=== PATIENT | female | born 1975 | race Caucasian/White ===

== ENCOUNTER 2020-10-19 08:51 | Outpatient (REF) | payer OTHER, SELFPAY ==
--- NOTE | ~2020-10-19 | MM_ITS ---
EXAMINATION: MM SCREENING DIGITAL BREAST TOMOSYNTHESIS, BILATERAL CLINICAL INFORMATION: Screening. Asymptomatic. The lifetime risk of breast cancer based on the Tyrer-Cuzick Model is 21%. COMPARISON: Mammography: 07/13/2017, 02/04/2016, 08/17/2014 TECHNIQUE: Digital breast tomosynthesis is performed in both the craniocaudal and mediolateral oblique views along with computer-aided detection (CAD). Synthesized 2D images are generated from the tomosynthesis. Additional bilateral MLO views are provided. FINDINGS: The breasts are heterogeneously dense, which may obscure small masses (ACR BI-RADS breast composition Category c). There are no significant masses, abnormal calcifications, or other abnormalities. Parenchymal pattern is similar to prior studies. No developing density. The axilla and skin contours are unremarkable. MM/MM tomosynthesis screening BI IMPRESSION: No mammographic evidence of malignancy. ASSESSMENT: BI-RADS 1: Negative RECOMMENDATION: 1. Routine annual mammography screening. 2. The lifetime risk of breast cancer based on the Tyrer-Cuzick Model is 21%. Additional annual adjunct screening with breast MRI may be of benefit in women with a risk score of 20% or greater. This patient's information was entered into a reminder system with a target due date for their next mammogram.
== END 2020-10-19 08:52 | disposition home or self-care (01) ==
LOC: HO.MAMMO 08:51
PROVIDERS: Visit Provider Internal Medicine
DX: Z12.31 Encounter for screening mammogram for malignant neoplasm of breast (principal)
CPT/HCPCS: 77063; 77067

== ENCOUNTER 2022-03-17 12:47 | Outpatient (REF) | payer OTHER, SELFPAY ==
--- NOTE | ~2022-03-17 | MM_ITS ---
EXAMINATION: MM SCREENING DIGITAL BREAST TOMOSYNTHESIS, BILATERAL CLINICAL INFORMATION: Screening. Asymptomatic. The lifetime risk of breast cancer based on the Tyrer-Cuzick Model is 21%. COMPARISON: Mammography: 10/19/2020, 07/13/2017, 02/04/2016 TECHNIQUE: Digital breast tomosynthesis is performed in both the craniocaudal and mediolateral oblique views along with computer-aided detection (CAD). Synthesized 2D images are generated from the tomosynthesis. FINDINGS: The breasts are heterogeneously dense, which may obscure small masses (ACR BI-RADS breast composition Category c). Right breast has smooth oval mass with partly obscured margins central breast mid depth slightly lateral to midline measuring approximately 1.6 x 1.3 cm. This represents change from prior studies. Left breast has 2 small nodules with smooth partly obscured margins anterior mid lower inner quadrant, both under 0.5 cm. This represents change from prior studies. The remainder of the bilateral breasts demonstrate no architectural abnormality or developing density. No abnormal calcifications. There are bilateral dermal calcifications at the posterior medial breasts. The axilla and skin contours are unremarkable. MM/MM tomosynthesis screening BI IMPRESSION: Right: -Smooth oval mass 1.6 x 1.3 cm central mid depth slightly lateral to midline, likely a cyst. Left: -2 small smooth nodules under 0.5 cm anterior mid lower inner quadrant, possibly cysts. ASSESSMENT: BI-RADS 0: Incomplete - Need Additional Imaging Evaluation RECOMMENDATION: 1. Bilateral targeted ultrasound. 2. Radiology department staff will contact the patient for additional imaging. This patient's information was entered into a reminder system with a target due date for their next mammogram.
== END 2022-03-17 12:48 | disposition home or self-care (01) ==
LOC: HO.MAMMO 12:47
PROVIDERS: Visit Provider Internal Medicine
DX: Z12.31 Encounter for screening mammogram for malignant neoplasm of breast (principal)
CPT/HCPCS: 77063; 77067

== ENCOUNTER 2022-03-30 14:51 | Outpatient (REF) | payer OTHER, SELFPAY ==
--- NOTE | ~2022-03-30 | US_ITS ---
EXAMINATION: US DIAGNOSTIC ULTRASOUND BREAST, RIGHT US DIAGNOSTIC ULTRASOUND BREAST, LEFT CLINICAL INFORMATION: Recall from screening for smooth oval mass central mid right breast and 2 small nodules anterior mid lower inner left breast. COMPARISON: Mammography 03/17/2022, 10/19/2020, 07/13/2017. TECHNIQUE: Ultrasound right breast is targeted to the central breast. Ultrasound left breast is targeted to the lower inner quadrants. Both breasts are imaged using grayscale imaging and color Doppler without and with harmonics. FINDINGS: Right: There is an incidental dominant simple cyst central 9:00 position approximately 3 cm from nipple measuring approximately 1.6 x 1.2 cm. There is increased through-transmission of sound. Margins are circumscribed and there is no associated color flow. This corresponds to finding on mammography and is benign. Left: There are 2 tiny anechoic nodules lower inner anterior left breast corresponding to the nodularity on screening mammography and both under 1 cm. There is no strong increased through-transmission of sound, possibly related to the small size. No associated color flow or solid component. These are probably benign and will be reassessed again with mammography in 6 months, ultrasound if warranted. Results are discussed with the patient at time of visit. US/US breast RT limited IMPRESSION: Right: -Incidental dominant benign simple cyst central breast 1.6 cm corresponding to recent mammography. Left: -2 small probable benign anechoic nodules likely cysts. No strong posterior acoustic enhancement possibly due to small size. ASSESSMENT: BI-RADS 3: Probably Benign RECOMMENDATION: Diagnostic left mammography in 6 months. This patient's information was entered into a reminder system with a target due date for their next mammogram.
--- NOTE | ~2022-03-30 | US_ITS ---
EXAMINATION: US DIAGNOSTIC ULTRASOUND BREAST, RIGHT US DIAGNOSTIC ULTRASOUND BREAST, LEFT CLINICAL INFORMATION: Recall from screening for smooth oval mass central mid right breast and 2 small nodules anterior mid lower inner left breast. COMPARISON: Mammography 03/17/2022, 10/19/2020, 07/13/2017. TECHNIQUE: Ultrasound right breast is targeted to the central breast. Ultrasound left breast is targeted to the lower inner quadrants. Both breasts are imaged using grayscale imaging and color Doppler without and with harmonics. FINDINGS: Right: There is an incidental dominant simple cyst central 9:00 position approximately 3 cm from nipple measuring approximately 1.6 x 1.2 cm. There is increased through-transmission of sound. Margins are circumscribed and there is no associated color flow. This corresponds to finding on mammography and is benign. Left: There are 2 tiny anechoic nodules lower inner anterior left breast corresponding to the nodularity on screening mammography and both under 1 cm. There is no strong increased through-transmission of sound, possibly related to the small size. No associated color flow or solid component. These are probably benign and will be reassessed again with mammography in 6 months, ultrasound if warranted. Results are discussed with the patient at time of visit. US/US breast LT limited IMPRESSION: Right: -Incidental dominant benign simple cyst central breast 1.6 cm corresponding to recent mammography. Left: -2 small probable benign anechoic nodules likely cysts. No strong posterior acoustic enhancement possibly due to small size. ASSESSMENT: BI-RADS 3: Probably Benign RECOMMENDATION: Diagnostic left mammography in 6 months. This patient's information was entered into a reminder system with a target due date for their next mammogram.
== END 2022-03-30 14:52 | disposition home or self-care (01) ==
LOC: HO.MAMMO 14:51
PROVIDERS: Visit Provider Internal Medicine
DX: N63.15 Unspecified lump in the right breast, overlapping quadrants (principal); N63.24 Unspecified lump in the left breast, lower inner quadrant
CPT/HCPCS: 76642

== ENCOUNTER 2022-09-29 13:25 | Outpatient (REF) | payer OTHER, SELFPAY ==
--- NOTE | ~2022-09-29 | MM_ITS ---
EXAMINATION: MM DIAGNOSTIC DIGITAL BREAST TOMOSYNTHESIS, LEFT TARGETED LEFT BREAST ULTRASOUND CLINICAL INFORMATION: Six-month follow up left breast nodules. The lifetime risk of breast cancer based on the Tyrer-Cuzick Model is 21%. Additional annual screening with breast MRI may be of benefit in women with a score of 20% or greater. COMPARISON: Mammography: 03/30/2022 and studies dating back to 02/04/2016. TECHNIQUE: Digital breast tomosynthesis is performed in both the craniocaudal and mediolateral oblique views along with computer-aided detection (CAD). Synthesized 2D images are generated from the tomosynthesis. Targeted left breast ultrasound. FINDINGS: The breasts are heterogeneously dense, which may obscure small masses (ACR BI-RADS breast composition Category c). There is stability of the 2 circumscribed densities about the medial aspect of the right breast. No new abnormal dominant mass or suspicious grouping of microcalcifications is identified. Targeted ultrasound evaluation of the left breast medial aspect again demonstrated multiple circumscribed hypoechoic densities with smooth back castellano and increased through sound transmission consistent with small cysts. No suspicious solid mass is identified. No region of abnormal distal sound shadowing is seen. Results are discussed with the patient at time of visit. MM/MM tomosynthesis diagnostic LT IMPRESSION: No mammographic or ultrasound evidence of malignancy. ASSESSMENT: BI-RADS 2: Benign. RECOMMENDATION: Routine annual mammography screening, due in 6 months. This patient's information was entered into a reminder system with a target due date for their next mammogram.
== END 2022-09-29 13:26 | disposition home or self-care (01) ==
LOC: HO.MAMMO 13:25
PROVIDERS: PCP Internal Medicine; Visit Provider Internal Medicine
DX: R92.8 Other abnormal and inconclusive findings on diagnostic imaging of breast (principal)
CPT/HCPCS: 76642; 77061; 77065

== ENCOUNTER 2023-04-02 13:01 | Outpatient (REF) | payer OTHER, SELFPAY | END 2023-04-02 13:02 | disposition home or self-care (01) | LOC: HO.MAMMO 13:01 | PROVIDERS: PCP Internal Medicine; Visit Provider Internal Medicine | DX: Z12.31 Encounter for screening mammogram for malignant neoplasm of breast (principal) | CPT/HCPCS: 77063; 77067 ==

== ENCOUNTER → 2023-04-02 13:15 | Outpatient (BNV) | payer OTHER, SELFPAY | PROVIDERS: PCP Internal Medicine; Visit Provider Radiology Diagnostic Radiology | DX: Z12.31 Encounter for screening mammogram for malignant neoplasm of breast (principal) | CPT/HCPCS: 77063; 77067 ==

== ENCOUNTER 2024-10-16 09:29 | Outpatient (REF) | payer OTHER, SELFPAY ==
--- OUTSIDE RECORDS SUMMARY | 2024-10-16 10:27 | XMS_ITS | Patient Health Record ---
Author Organization [employer] [facility] Address [address] [place] [address] Care Team Providers Care Counter Person Name Role Phone SCHUYLER LOPEZ, SHANDA Primary Care Provider Unavail able AURELIO VERGARA Unavailable [phone] Allergies No Known Allergies Results Component Value Reference Range Notes PDF Report Reviewed date:10/14/2024 02:50:41 PM Interpretation: Performing Lab:[facility] [place], [address], [address], [place], Phone - [phone], Director - [facility] Notes/Report: Clinical Information:[id number] LMP / Prev Treat...[id number] Dates / Results....10/18/2020 No. of containers..01 ThinPrep Vial [id number] Reviewed date:10/14/2024 02:50:35 PM Interpretation: Performing Lab:[facility] [place], [address], [address], [place], Phone - [phone], Director - [facility] Notes/Report: RPR Non Reactive Non Reactive HBsAg Screen-[id number] Reviewed date:10/14/2024 02:50:28 PM Interpretation: Performing Lab:[facility] [place], [address], [address], [place], Phone - [phone], Director - [facility] Notes/Report: HBsAg Screen Negative Negative HIV Ab/p24 Ag with Reflex-[id number] Reviewed date:10/14/2024 02:50:22 PM Interpretation: Performing Lab:[facility] [place], [address], [address], [place], Phone - [phone], Director - [facility] Notes/Report: HIV Ab/p24 Ag Screen Non Reactive Non Reactive HIV-1/HIV-2 antibodies and HIV-1 p24 antigen were NOT detected. There is no laboratory evidence of HIV infection. HIV Negative [id number] IGP, CtNg Culture 30 Plus Reviewed date:10/14/2024 03:53:37 PM Interpretation: Performing Lab:[facility] [place], [address], [address], [place], Phone - [phone], Director - [facility] Notes/Report: Clinical Information:[id number] LMP / Prev Treat...[id number] Dates / Results....10/18/2020 No. of containers..01 ThinPrep Vial DIAGNOSIS: NEGATIVE FOR IN TRAEPITHELIAL LESION OR MALIGNANCY. Specimen adequacy: Satisfact ory for evaluation. Clinician provided ICD10: Z0 1.419 Performed by: Charan monk, Talent Sourcing Specialist ([facility]) . . Note: The Pap smear is a screening test designed to aid in the detection of premalignant and malignant conditions of the uterine cervix. It is not a diagnostic procedure and should not be used as the sole means of detecting cervical cancer. Both false-positive and false-negative reports do occur. . Test Methodology: This liquid based ThinPrep(R) pap test was screened with the use of an image guided system. HPV Aptima Negative Negative This nucleic acid amplification test detects fourteen high-risk HPV types (16,18,31,33,35,39,45,51,52,56, 58,59,66,68) without differentiation. HPV Genotype Reflex Criteria not met, HPV Genotype not performed. Chlamydia, Nuc. Acid Amp Negative Negative Gonococcus, Nuc. Acid Amp Negative Negative HCV [id number] Reviewed date:10/14/2024 02:50:16 PM Interpretation: Performing Lab:[facility], [address], [address], [place], Phone - [phone], Director - [facility] Notes/Report: Hep C Virus Ab Non Reactive Non Reactive HCV antibody alone does not differentiate between previously resolved infection and active infection. Equivocal and Reactive HCV antibody results should be followed up with an HCV RNA test to support the diagnosis of active HCV infection. PDF Report Reviewed date:10/14/2024 02:50:10 PM Interpretation: Performing Lab:[facility] [place], [address], [address], [place], Phone - [phone], Director - [facility] Notes/Report: Reason For Referral No Information Medications Medication SIG (Take, Route, Fr equency, Duration) Notes Start Date End Date Status Norlyda 0.35 MG 1 tablet Orally Once a day for 84 days 10/18/2020 Not-Taking Social History Tobacco Use: Social History Observation Description Date Details (start date - stop date) Former Smoker NA - NA Sexual History Question Answer Notes Had sex in the past 12 months (vaginal, oral, or anal)? No Have you ever had a Sexually transmitted disease ? No AUDIT-C (Standard) Question Answer Notes Did you have a drink contain ing alcohol in the past year? Yes How often did you have a dri nk containing alcohol in the past year? 2 to 3 times a week (3 points) How many drinks did you have on a typical day when you were drinking in the past year? 1 or 2 drinks (0 point) How often did you have six o r more drinks on one occasion in the past year? Never (0 point) Points 3 Interpretation Positive Tobacco Control (Standard) Question Answer Notes Tobacco use: Former smoker How long has it been since you last smoked? 5-10 years Problems Problem Type SNOMED Code ICD Code Onset Dates Problem Status W/U Status Risk Notes Problem Stenosis of cervix (39214255) Stricture and stenosis of cervix uteri (N88.2) Active confirmed Problem Recurrent depression (772914836) Other recurrent depressive disorders (F33.8) Active confirmed Problem Chronic migraine without aura, non-refractory (disorder) (48918866184650 0) Migraine without aura, not intractable, without status migrainosus (G43.009) Active confirmed Problem Family history of malignant neoplasm of breast (253906534) Family history of malignant neoplasm of breast (Z80.3) Active confirmed Vital Signs Temperature 97.7 degrees Fahrenheit 10/10/2024 Blood pressure diastolic 78 mm Hg 10/10/2024 Height 60 in 10/10/2024 Blood pressure systolic 128 mm Hg 10/10/2024 Weight 152 lbs 10/10/2024 BMI 29.68 kg/m2 10/10/2024 Encounters Encounter Location Date Provider Diagnosis [facility] [address] [place] [address] 10/10/2024 AURELIO VERGARA Encounter for gynecological examination (general) (routine) without abnormal findings Z01.419 ; Encounter for screening mammogram for malignant neoplasm of breast Z12.31 and High risk heterosexual behavior Z72.51 Assessments Encounter Date Diagnosis (ICD Code) Assessment Notes Treatment Notes Treatment Clinical Notes Section Notes 10/10/2024 Encounter for gynecological examination (general) (routine) without abnormal findings (ICD-10 - Z01.419) During the visit, the following areas of concern were addressed: Discussed cervical cancer screening with either cytology alone every 3 years or high risk HPV co-testing every 5 years as per ASCCP guidelines. Advised continued annual pelvic exams. Patient encouraged to increase her level of exercise. SBE technique encouraged/taugh t. Patient reminded when annual mammogram is due. Patient encouraged to keep colon screening up to date. 10/10/2024 Encounter for screening mammogram for malignant neoplasm of breast (ICD-10 - Z12.31) 10/10/2024 High risk heterosexual behavior (ICD-10 - Z72.51) I discussed with patient the options for types of high risk sexual behavior, and she chose heterosexual despite being to a woman. Plan Of Treatment Pending Test Test Name Order Date MM Digital Screening Mammogram 3D 2022 MM Digital Screening Mammogram 3D 2021 MM Digital Screening Mammogram 3D 2024 Next Appt Details Provider Name:AURELIO Valero, 10/16/2025 11:00:00 AM, [address], [address], [place], [address], Insurance Providers Payer Name Payer Address Payer Phone Subscriber Number Group Number Insured Name Patient Relationship to Insured Coverage Start Date Coverage End Date [facility] [address] [place] [address] [id number] CATE RAMIREZ Self - patient is the insured 5 Medical (General) History Medical History History ICD Code Migraine without aura, not intractable, without status migrainosus G43.009 Other recurrent depressive disorders F33 .8 Stricture and stenosis of cervix uteri N 88.2 Family history of malignant neoplasm of breast Z80.3 Polyp of colon K63.5 Dense breasts, unspecified R92.30 Mammographic heterogeneous density, bila teral breasts R92.333 Surgical History Surgery Date(Month/Year) 1 wisdom tooth removed
--- OUTSIDE RECORDS SUMMARY | 2024-10-16 10:27 | XMS_ITS | Clinical Summary ---
Author Organization [facility] it Address [address] [place] [address] Care Team Providers Care Physician Scientist Name Role Phone Mary Jo Gotti MD Primary Care Provider [phone] Surgical History Surgery Date Site/Laterality Comments OTHER SURGICAL HISTORY PROCEDURE: DENIES PREVIOUS SURGERY Medical History Medical History Date Comments Iron deficiency anemia DX:Iron d eficiency anemia Family History Medical History Relation Name Comments Blindness Maternal Grandmother due to diabetes Cataracts Uncle maternal Glaucoma Neg Hx Macular degeneration Neg Hx Strabismus Neg Hx Relation Name Status Comments Father Alive dm, heart probl ems Maternal Grandmother Mother Alive ALZHEIMER, DM, BREAST CANCER Uncle Social History Tobacco Use Types Packs/Day Years Used Date Smoking Tobacco: Former Cigarettes Q uit: 05/09/2010 Smokeless Tobacco: Former Alcohol Use Standard Drinks/Week Comments Yes 0 (1 standard drink = 0.6 oz pur e alcohol) Comments Unknown Sex and Gender Information Value Date Recorded Sex Assigned at Not on file Legal Sex Female 1:10 PM EST Gender Identity Not on file Sexual Orientation Not on file Obstetrics History Plan of Treatment Health Maintenance Due Date Last Done Comments Breast Cancer Screening 1975 Hepatitis B Vaccines (1 of 3 - 19+ 3-dose series) 1994 Cervical Cancer Screening: P ap Smear 1996 DTaP,Tdap,and Td Vaccines (2 - Td or Tdap) 05/19/2020 05/19/2010 COVID-19 Vaccine (2023-2 5 season) 2024 Influenza Vaccine (Season Ended) 2025 05/19/20 10 HIB Vaccines Aged Out No longer eligi ble based on patient's age to complete this topic HPV Vaccines Aged Out No longer eligi ble based on patient's age to complete this topic Hepatitis A Vaccines Aged Out No long er eligible based on patient's age to complete this topic IPV Vaccines Aged Out No longer eligi ble based on patient's age to complete this topic MMR Vaccines Aged Out No longer eligi ble based on patient's age to complete this topic Meningococcal ACWY Vaccine Aged Out N o longer eligible based on patient's age to complete this topic Meningococcal B Vaccine Aged Out No l onger eligible based on patient's age to complete this topic Pneumococcal Vaccine: Pediat rics (0 to 5 Years) and At-Risk Patients (6 to 64 Years) Aged Out No longer eligi ble based on patient's age to complete this topic RSV Immunization Patients Un susan 20 months Aged Out No longer eligible b ased on patient's age to complete this topic Varicella Vaccines Aged Out No longer eligible based on patient's age to complete this topic Care Teams Physician Scientist Relationship Specialty Start Date End Date Mary Jo Gotti MD [address] [place] [id number] PCP - General 09/13/22
--- OUTSIDE RECORDS SUMMARY | 2024-10-16 10:28 | XMS_ITS ---
Author Organization [facility] Address [address] [place] [address] Care Team Providers Care Commodity Loan Clerk Name Role Phone SCHUYLER LOPEZ, SHANDA Primary Care Provider Unavail able AURELIO VERGARA Unavailable [phone] Allergies No Known Allergies Results Component Value Reference Range Notes [id number] Reviewed date:10/14/2024 02:50:35 PM Interpretation: Performing Lab:[facility] [place], [address], [address], [place], Phone - [phone], Director - [place] Notes/Report: RPR Non Reactive Non Reactive HBsAg Screen-[id number] Reviewed date:10/14/2024 02:50:28 PM Interpretation: Performing Lab:[facility] [place], [address], [address], [place], Phone - [phone], Director - [place] Notes/Report: HBsAg Screen Negative Negative HIV Ab/p24 Ag with Reflex-[id number] Reviewed date:10/14/2024 02:50:22 PM Interpretation: Performing Lab:[facility] [place], [address], [address], [place], Phone - [phone], Director - [place] Notes/Report: HIV Ab/p24 Ag Screen Non Reactive Non Reactive HIV-1/HIV-2 antibodies and HIV-1 p24 antigen were NOT detected. There is no laboratory evidence of HIV infection. HIV Negative [id number] IGP, CtNg Culture 30 Plus Reviewed date:10/14/2024 03:53:37 PM Interpretation: Performing Lab:[facility] [place], [address], [address], [place], Phone - [phone], Director - [place] Notes/Report: Clinical Information:[id number] LMP / Prev Treat...OSA=[id number] Dates / Results....10/18/2020 No. of containers..01 ThinPrep Vial DIAGNOSIS: NEGATIVE FOR IN TRAEPITHELIAL LESION OR MALIGNANCY. Specimen adequacy: Satisfact ory for evaluation. Clinician provided ICD10: Z0 1.419 Performed by: Charan monk Relay Assembler ([facility]) . . Note: The Pap smear is [...] Gonococcus, Nuc. Acid Amp Negative Negative HCV Antibody-[id number] Reviewed date:10/14/2024 02:50:16 PM Interpretation: Performing Lab:[facility], [address], [address], [place], Phone - [phone], Director - [facility] Notes/Report: Hep C Virus Ab Non Reactive Non Reactive HCV antibody alone does not differentiate between previously resolved infection and active infection. Equivocal and Reactive HCV antibody results should be followed up with an HCV RNA test to support the diagnosis of active HCV infection. PDF Report Reviewed date:10/14/2024 02:50:41 PM Interpretation: Performing Lab:[facility], [address], [address], [place], Phone - [phone], Director - [facility] Notes/Report: Clinical Information:[id number] LMP / Prev Treat...EJL=[id number] Dates / Results....10/18/2020 No. 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 5-10 years Vital Signs Temperature 97.7 degrees Fahrenheit 10/11/19 25 Blood pressure systolic 128 mm Hg 10/11/19 25 Blood pressure diastolic 78 mm Hg 025 Height 60 in 10/10/2024 Weight 152 lbs 10/10/2024 BMI 29.68 kg/m2 10/10/2024 Encounters Encounter Location Date Provider Diagnosis [address] [address] 10/10/2024 AURELIO VERGARA Encounter for gynecological examination [...] being to a woman. Plan Of Treatment Treatment Notes Assessment Notes Encounter for gynecological examination (general) (routine) without abnormal findings During the visit, the following areas of concern were addressed: Discussed cervical cancer screening with either cytology alone every 3 years or high risk HPV co-testing every 5 years as per ASCCP guidelines. Advised continued annual pelvic exams. Patient encouraged to increase her level of exercise. SBE technique encouraged/taught. Patient reminded when annual mammogram is due. Patient encouraged to keep colon screening up to date. High risk heterosexual behavior I discus sed with patient the options for types of high risk sexual behavior, and she chose heterosexual despite being to a woman. Pending Test Test Name Order Date MM Digital Screening Mammogram 3D 2024 Next Appt Details Follow Up: 1 Year, Reason: Y early Balance Truer Exam Provider Name:AURELIO Valero, 10/16/2025 11:00:00 AM, [address] [place] [address], [facility] [address], [place], [address], Progress Notes * CATE RAMIREZDOB:1975 ( 49 yo F)Acc No.[id number]:10/10/2024 PROGRESS NOTES Patient:?CATE RAMIREZ Provider:?AURELIO VERGARA MD :1975???Age:49 Y???Sex:Female D ate:10/10/2024 Address:[address] [place] [address], [facility] Pcp:SHANDA PAYAN MD Subjective: * Chief Complaints: * ???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 She has been in state of good health since her last exam. She has the following concerns: none She started exercising about 2 years ago. She has received the [employer] Covid-19 vaccine. Relationship status: in 10/2021. She is not sexually active, not due to dyspareunia. Sexual partner(s): female. She does wish to have STI testing. Menses:sporadic, was about every 3 months or more, lasting 3 days, moderate flow. Denies intermenstrual bleeding. Contraception: abstinence She does not report vaginal dryness. She is not sure if she is having?hot flashes/night sweats, as she is always hot. The patient has not had an abnormal pap smear within the last 5 years. Her most recent pap smear was 10/18/20 - ASCUS, Neg HR HPV. Pap in 2017 - ASCUS (no HPV test reported), and in 08/2019 - NIL, Neg HR HPV. She is overdue for cotesting. She has not been diagnosed with breast cancer. She does have a family history of breast cancer - mother. Her last mammogram was 03/17/22 at [facility], with followup views (mammo and u/s) indicating the need for followup imaging in 6 months. She reports she did go for those follow up views, but she's not sure. She does have a family history of colon cancer - paternal aunt. She a has had a colonoscopy. The last colonoscopy was 09/07/22. Follow up in 10 yrs. The patient does exercise. She has been going to the gym twice weekly to work out with a industrial trainer, and also works out an additional day. * ROS:?Annual Balance Truer Exam ROS:?Bowel habit changes?denies.?Bladder symptoms?denies.?Vaginal discharge, unusual?denies.?Vaginal itch or odor?denies.?weight or appetite changes?denies.?Chest pains, SOB?denies.?depression? admits, currently in therapy; feels things are good today; Denies SI/HI.?Breast:?Denies?Breast lump.?Denies?Nipple discharge.?Hematology:?Denies?Swollen glands.?Skin:?Patient denies?changing moles.?Psychiatric:?Admits?Anxiety,?uses exercise or watches TV/reads a book.? * Medical History:? * Balance Truer History:?/ Para?0/0.?Sexual activity?not currently sexually active.?Last Pap Smear:?10/18/20 ASCUS, No Ecc's, NEG HRHPV, 2018.?Mammogram:?03/17/2022 50-75% density, 07/13/17 (In [facility] with date, but no report).?LMP and menses?04/2024, 03/26/2022 JUST SPOTTING,10/02/20.? Control:?condoms, POPs, abstinence.?Colonoscopy?09/07/2022.? * OB History:?Total pregnancies?0.? * Surgical History:?1 wisdom t ooth removed * Hospitalization/Major Diagno stic Procedure:?Denies Past Hospitalization * Family History:?Mother: dece ased 74 yrs, Breast Cancer - postmenopausal, Alzheimers Disease.?Father: 73 yrs, sepsis.?Paternal aunt: , Cancer Unknown.? Paternal Cousin: Leukemia; from liver failure Sister - Sheela- 1972 - rheumatoid arthritis Brother - Blaine - 1970 - osteoarthritis Brother - Romain - at age 32 from opiate overdose (fentanyl) in 2018 Brother - Nick - at age 55 from opiate overdose in 11/2021. * Social History:?Tobacco Use:?Tobacco Control (Standard)?Tobacco use:?Former smoker ?How long has it been since you last smoked??5-10 years ???Sexual History:?Sexual History?Had sex in the past 12 months (vaginal, oral, or anal)??No ?Have you ever had a Sexually transmitted disease??No ?Details of Sexual History?Are you sexually active??No ???Drugs/Alcohol:?Drugs?Have you used drugs other than those for medical reasons in the past 12 months??No ???Miscellaneous:?Caffeine: yes, frequency:, 1-2 cups per day. ?Children: no. ?Domestic violence: no. ?Exercise: yes, walking prior to COVID (miley). ?Home smoke detector use: yes. ?Housing: owns a home. ?Living with: brother. ?Marital status: - Amanda (in the [place]). ?Natural support system: yes. 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 ?Others at home: none. ?Pets: none. ?Sexual abuse: no. ?Sexually active: no. ?Verbal abuse: no. ???Drug/Alcohol:?AUDIT-C (Standard)?Did you have a drink containing alcohol in the past year??Yes ?How often did you have a drink containing alcohol in the past year??2 to 3 times a week (3 points) ?How many drinks did you have on a typical day when you were drinking in the past year??1 or 2 drinks (0 point) ?How often did you have six or more drinks on one occasion in the past year??Never (0 point) ?Points?3 ?Interpretation?Positive * Medications:?Not-TakingNorly da 0.35 MG Tablet 1 tablet Orally Once a day Medication List reviewed and reconciled with the patientNot-Taking Norlyda 0.35 MG Tablet 1 tablet Orally Once a day Medication List reviewed and reconciled with the patient * Allergies:?N.K.D.A.no[Allerg ies Verified] Objective: * Vitals:?Ht: 60 in, Wt:152lbs , BMI:29.68Index, BP:128/78mm Hg, Temp:97.7F. * Examination: ???General Examination: ?GENERAL APPEARANCE:?in no acute distress, well developed, well nourished, commercial relief driver present in room.?HEAD:?normocephalic, atraumatic.?NECK/THYROID:?neck supple, full range of motion, thyroid normal.?LYMPH NODES:?no axillary or supraclavicular adenopathy.?SKIN:? normal, good turgor, no rashes, no suspicious lesions.?BREASTS:? normal, no dimpling, no discharge, no drainage, no masses palpable bilaterally, nontender.?ABDOMEN:? soft, non-tender, non distended without masses or hepatosplenomegay.?RECTAL:? normal tone, no masses palpable.?BACK:? no costovertebral angle tenderness.?FEMALE GENITOURINARY:?Vulva without lesions or masses, vagina permits one finger only and is pink without abnormal discharge, lesions or masses, cervix appears normal and is not tender to palpation, os is stenotic, uterus is difficult to size due to habitus, mobile, nontender and anteverted, ovaries are not palpable.?NEUROLOGIC:? alert and oriented, gait normal.?PSYCH:? alert, oriented, cognitive function intact, cooperative with exam, good eye contact, mood/affect full range, speech clear.? Assessment: * Assessment: 1.?Encounter for gynecologic al examination (general) (routine) without abnormal findings - Z01.419 (Primary)???2.?Encounter for screening mammogram for malignant neoplasm of breast - Z12.31???3.?High risk heterosexual behavior - Z72.51??? Plan: * Treatment: 2.?Encounter for screening m ammogram for malignant neoplasm of breast?Imaging: MM Digital Screening Mammogram 3D 3.?High risk heterosexual be havior?LAB: [id number] ? Value Reference Range ?RPR Non Reactive Non Reactive - * This lab was reviewed by SAVITA VERGARA on 10/14/2024 at 14:50 PM EDT ?LAB: HBsAg Screen-[id number]* ? Value Reference Range ?HBsAg Screen Negative Negative - * This lab was reviewed by SAVITA VERGARA on 10/14/2024 at 14:50 PM EDT ?LAB: HIV Ab/p24 Ag with Reflex-[id number]* ? Value Reference Range ?HIV Ab/p24 Ag Screen Non Reactive No n Reactive - * This lab was reviewed by SAVITA VERGARA on 10/14/2024 at 14:50 PM EDT ?LAB: HCV Antibody-[id number]* ? Value Reference Range ?Hep C Virus Ab Non Reactive Non Reac tive - * This lab was reviewed by SAVITA VERGARA on 10/14/2024 at 14:50 PM EDT Notes: I discussed with patient the options for types of high risk sexual behavior, and she chose heterosexual despite being to a woman.?? * Procedure Codes:? * Follow Up:?1 Year (Reason: Y early Balance Truer Exam) * Images: Billing Information: * Visit Code:? 37117 Preventive Care Est Pt. Age 40-64. * Procedure Codes:? 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 She has been in state of good health since her last exam. She has the following concerns: none She started exercising about 2 years ago. She has received the [employer] Covid-19 vaccine. Relationship status: in 10/2021. She is not sexually active, not due to dyspareunia. Sexual partner(s): female. She does wish to have STI testing. Menses:sporadic, was about every 3 months or more, lasting 3 days, moderate flow. Denies intermenstrual bleeding. Contraception: abstinence She does not report vaginal dryness. She is not sure if she is having hot flashes/night sweats, as she is always hot. The patient has not had an abnormal pap smear within the last 5 years. Her most recent pap smear was 10/18/20 - ASCUS, Neg HR HPV. Pap in 2017 - ASCUS (no HPV test reported), and in 08/2019 - NIL, Neg HR HPV. She is overdue for cotesting. She has not been diagnosed with breast cancer. She does have a family history of breast cancer - mother. Her last mammogram was 03/17/22 at [facility], with followup views (mammo and u/s) indicating the need for followup imaging in 6 months. She reports she did go for those follow up views, but she's not sure. She does have a family history of colon cancer - paternal aunt. She a has had a colonoscopy. The last colonoscopy was 09/07/22. Follow up in 10 yrs. The patient does exercise. She has been going to the gym twice weekly to work out with a industrial trainer, and also works out an additional day. Examination Category Sub-Category Detail Notes Category Not es General Examination GENERAL APPEARANCE: in no ac [place] distress, well developed, well nourished, commercial relief driver present in room HEAD: normocephalic, atrau matic NECK/THYROID: neck supple, full ra nge of motion, thyroid normal ABDOMEN: soft, non-tender, no n distended without masses or hepatosplenomegay NEUROLOGIC: alert and oriented, gait normal SKIN: normal, good turgor, no rashes, no suspicious lesions BACK: no costovertebral an gle tenderness BREASTS: normal, no dimpling, no discharge, no drainage, no masses palpable bilaterally, nontender LYMPH NODES: no axillary or supra clavicular adenopathy RECTAL: normal tone, no mass es palpable PSYCH: alert, oriented, cog nitive function intact, cooperative with exam, good eye contact, mood/affect full range, speech clear FEMALE GENITOURINARY: Vulva without lesi ons or masses, vagina permits one finger only and is pink without abnormal discharge, lesions or masses, cervix appears normal and is not tender to palpation, os is stenotic, uterus is difficult to size due to habitus, mobile, nontender and anteverted, ovaries are not palpable
--- OUTSIDE RECORDS SUMMARY | 2024-10-16 10:28 | XMS_ITS ---
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 5-10 years Encounters Encounter Location Date Provider Diagnosis [facility] [employer] [address] [address] 05/07/2023 AURELIO VERGARA Encounter for gynecological examination (general) (routine) without abnormal findings Z01.419 ; Encounter for screening mammogram for malignant neoplasm of breast Z12.31 and Encounter for screening for infections with a predominantly sexual mode of transmission Z11.3 Assessments Encounter Date Diagnosis (ICD Code) Assessment Notes Treatment Notes Treatment Clinical Notes Section Notes 05/07/2023 Encounter for gynecological examination (general) (routine) without abnormal findings (ICD-10 - Z01.419) During the visit, the following areas of concern were addressed: Discussed cervical cancer screening with either cytology alone every 3 years or high risk HPV co-testing every 5 years as per ASCCP guidelines. Advised continued annual pelvic exams. Patient encouraged to increase her level of exercise. SBE technique encouraged/tau ght. Patient reminded when annual mammogram is due. Patient encouraged to keep colon screening up to date. 05/07/2023 Encounter for screening mammogram for malignant neoplasm of breast (ICD-10 - Z12.31) 05/07/2023 Encounter for screening for infections with a predominantly sexual mode of transmission (ICD-10 - Z11.3) Plan Of Treatment Treatment Notes Assessment Notes [...] to keep colon screening up to date. Pending Test Test Name Order Date MM Digital Screening Mammogram 3D 2022 Next Appt Details Follow Up: 1 Year, Reason: Y early Sugar Coating Hand Exam Provider Name:AURELIO Valero, 10/16/2025 11:00:00 AM, [address] [place] [address], [address], [place], [address], Progress Notes * CATE RAMIREZDOB:1975 ( 49 yo F)Acc No.[id number]:05/07/2023 PROGRESS NOTES Patient:?CATE RAMIREZ Provider:?AURELIO VERGARA MD :1975???Age:48 Y???Sex:Female D ate:05/07/2023 Address:[address] [place] [address], [facility] Pcp:SHANDA PAYAN MD Subjective: * Chief Complaints: * ???1. 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 * HPI: ???Constitutional:? 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 She has been in state of good health since her last exam. She has the following concerns: She has received the [facility] Covid-19 vaccine. Relationship status: single. She is *not sexually active. Sexual partner(s): male. She does *not wish to have STI testing. Menses: Contraception: *abstinence She does *not report vaginal dryness. She does *not have hot flashes/night sweats. The patient has had an abnormal pap smear within the last 5 years - she got a letter in the last year telling her that her pap was abnormal (from her previous provider). Her most recent pap smear was 10/18/20 - ASCUS, Neg HR HPV. Pap in 2018 - ASCUS (no HPV test reported), and in 08/2019 - NIL, Neg HR HPV. She has not been diagnosed with breast cancer. She does have a family history of breast cancer - mother. Her last mammogram was 03/17/22 at [facility], with followup views (mammo and u/s) indicating the need for followup imaging in 6 months. She does have a family history of colon cancer. She a has had a colonoscopy. The last colonoscopy was 09/07/22. The patient does *not exercise. . * ROS:?Annual Sugar Coating Hand Exam ROS:?Bowel habit changes?denies.?Bladder symptoms?denies.?Vaginal discharge, unusual?denies.?Vaginal itch or odor?denies.?weight or appetite changes?denies.?Chest pains, SOB?denies.?depression?denies.?Breast:?Denies?Breast lump.?Denies?Nipple discharge.?Hematology:?Denies?Swollen glands.?Skin:?Patient denies?changing moles.?Psychiatric:?Denies?Anxiety.? * Medical History:?Migraine wi thout aura, not intractable, without status migrainosus. * Sugar Coating Hand History:?/ Para?0/0.?Sexual activity?not currently sexually active.?Last Pap Smear:?10/18/20 ASCUS, No Ecc's, NEG HRHPV, 2018.?Mammogram:?03/17/2022 50-75% density, 07/13/17 (In [facility] with date, but no report).?LMP and menses?03/26/2022 JUST SPOTTING,10/02/20.? Control:?condoms, POPs, abstinence.? * OB History:?Total pregnancies?0.? * Surgical History:?1 wisdom t ooth removed . * Family History:?Mother: dece ased 74 yrs, [...] overdose in 11/2021. * Social History:?Tobacco Use:?Tobacco Use/Smoking?Are you a?former smoker ?How long has it been since you last smoked??5-10 years * Medications:?Not-Taking Norl yda 0.35 MG Tablet 1 tablet Orally Once a day Objective: * Vitals:? * Examination: ???General Examination: ?GENERAL APPEARANCE:?in no acute distress, well developed, well nourished, home management supervisor present in room.?HEAD:?normocephalic, atraumatic.?NECK/THYROID:?neck supple, full range of motion, thyroid normal.?LYMPH NODES:?no axillary or supraclavicular adenopathy.?SKIN:? normal, good turgor, no rashes, no suspicious lesions.?BREASTS:? normal, no dimpling, no discharge, no drainage, no masses palpable bilaterally, nontender.?ABDOMEN:? soft, non-tender, non distended without masses or hepatosplenomegay.?RECTAL:? normal tone, no masses palpable.?BACK:? no costovertebral angle tenderness.?FEMALE GENITOURINARY:?Vulva without lesions or masses, vagina pink without abnormal discharge, lesions or masses, cervix appears normal and is not tender to palpation, uterus is normal size, mobile, nontender and anteverted, ovaries are not palpable.?NEUROLOGIC:? alert and oriented, gait normal.?PSYCH:? alert, oriented, cognitive function intact, cooperative with exam, good eye contact, mood/affect full range, speech clear.? Assessment: * Assessment: 1.?Encounter for gynecologic al examination (general) (routine) without abnormal findings - Z01.419 (Primary)???2.?Encounter for screening mammogram for malignant neoplasm of breast - Z12.31???3.?Encounter for screening for infections with a predominantly sexual mode of transmission - Z11.3??? Plan: * Treatment: 2.?Encounter for screening m ammogram for malignant neoplasm of breast?Imaging: MM Digital Screening Mammogram 3D * Follow Up:?1 Year (Reason: Y early Sugar Coating Hand Exam) * Images: Billing Information: * Visit Code:? 62095 Preventive Care Est Pt. Age 40-64. * Procedure Codes:? 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 She has been in state of good health since her last exam. She has the following concerns: She has received the [employer] Covid-19 vaccine. Relationship status: single. She is *not sexually active. Sexual partner(s): male. She does *not wish to have STI testing. Menses: Contraception: *abstinence She does *not report vaginal dryness. She does *not have hot flashes/night sweats. The patient has had an abnormal pap smear within the last 5 years - she got a letter in the last year telling her that her pap was abnormal (from her previous provider). Her most recent pap smear was 10/18/20 - ASCUS, Neg HR HPV. Pap in 2018 - ASCUS (no HPV test reported), and in 08/2019 - NIL, Neg HR HPV. She has not been diagnosed with breast cancer. She does have a family history of breast cancer - mother. Her last mammogram was 03/17/22 at [facility], with followup views (mammo and u/s) indicating the need for followup imaging in 6 months. She does have a family history of colon cancer. She a has had a colonoscopy. The last colonoscopy was 09/07/22. The patient does *not exercise. Examination Category Sub-Category Detail Notes Category Not es General Examination GENERAL APPEARANCE: in no ac [place] distress, well developed, well nourished, home management supervisor present in room HEAD: normocephalic, atrau matic [...] Vulva without lesi ons or masses, vagina pink without abnormal discharge, lesions or masses, cervix appears normal and is not tender to palpation, uterus is normal size, mobile, nontender and anteverted, ovaries are not palpable
== END 2024-10-16 09:30 | disposition home or self-care (01) ==
LOC: HO.MAMMO 09:29
PROVIDERS: PCP Obstetrics & Gynecology; Visit Provider Internal Medicine
DX: Z12.31 Encounter for screening mammogram for malignant neoplasm of breast (principal)
CPT/HCPCS: 77063; 77067

== ENCOUNTER → 2024-10-16 09:30 | Outpatient (BNV) | payer OTHER, SELFPAY | PROVIDERS: PCP Obstetrics & Gynecology; Visit Provider Internal Medicine | DX: Z12.31 Encounter for screening mammogram for malignant neoplasm of breast (principal) | CPT/HCPCS: 77063; 77067 ==